=== PATIENT | male | born 1965 | race Caucasian/White ===

== ENCOUNTER 2021-05-17 11:47 | Inpatient (IN) | payer MEDICAID ==
[~2021-05-17] VITALS: Ht 320 cm; Wt 29.0 kg
[2021-05-17] MEDS ORDERED: SODIUM CHLORIDE 0.9% 1,000 ML IV ONE (13:45)
[2021-05-17 14:07] LABS: BASOPHILS % 0.6 % (0.0-2.0); EOSINOPHILS % 0.5 % (0.0-5.0); HEMATOCRIT. 40.1 % (42.0-52.0); HEMOGLOBIN. 13.6 g/dL (14.0-18.0); LYMPHOCYTES % 9.8 % (20.0-50.0); MEAN CORPUSCULAR HEMOGLOBIN 28.5 pg (28.0-32.0); MEAN CORPUSCULAR VOLUME 83.9 fL (80.0-94.0); MEAN PLATELET VOLUME 7.7 fl (7.4-10.4); MONOCYTES % 7.9 % (2.0-8.0); NEUTROPHILS % 81.2 % (40.0-76.0); PLATELET 393 x1000/uL (130-400); RED BLOOD CELL COUNT 4.78 mill/uL (4.7-6.1); RED CELL DISTRIBUTION WIDTH 14.6 % (11.6-14.6)
[2021-05-17 14:16] LABS: CHLORIDE 103 mEq/L (98-107)
[2021-05-17] MEDS ORDERED: CEFAZOLIN 1000MG PREMIX 50 ML IV ONE (14:45)
[2021-05-17] MEDS ORDERED: ACETAMINOPHEN 325MG TABLET PO PRN (19:15)
[2021-05-17] MEDS ORDERED: CLONIDINE 0.1MG TABLET PO PRN (19:15)
[2021-05-17] MEDS ORDERED: IPRATROPIUM/ALBUTEROL 0.5-3(2.5)MG/3ML NEB HHN PRN (19:15)
[2021-05-17] MEDS ORDERED: DIPHENHYDRAMINE 50MG/ML VIAL IV PRN (19:15)
[2021-05-17] MEDS ORDERED: ONDANSETRON HCL 4MG/2ML INJ IV PRN (19:15)
[2021-05-17] MEDS ORDERED: DEXTROSE 50% WATER 50ML SYRINGE IV PRN (20:15)
[2021-05-17] MEDS: CEFAZOLIN 1000MG PREMIX 50 ML IV SCH (20:17)
[2021-05-17] MEDS: BLOOD SUGAR DIAGNOSTIC STRIP TEST SCH (21:33)
[2021-05-17] MEDS: INSULIN LISPRO (LOW DOSE) 100 UNITS/ML SUBCUT SCH (21:37)
[2021-05-18] MEDS: CEFAZOLIN 1000MG PREMIX 50 ML IV SCH ×3 (04:23→23:55)
[2021-05-18 04:50] LABS: CHLORIDE 105 mEq/L (98-107)
[2021-05-18 04:57] LABS: BASOPHILS % 0.6 % (0.0-2.0); HEMATOCRIT. 34.9 % (42.0-52.0); HEMOGLOBIN. 12.1 g/dL (14.0-18.0); LYMPHOCYTES % 18.9 % (20.0-50.0); MEAN PLATELET VOLUME 7.6 fl (7.4-10.4); MONOCYTES % 7.1 % (2.0-8.0); NEUTROPHILS % 70.4 % (40.0-76.0); PLATELET 351 x1000/uL (130-400); RED BLOOD CELL COUNT 4.16 mill/uL (4.7-6.1); RED CELL DISTRIBUTION WIDTH 14.4 % (11.6-14.6)
[2021-05-18] MEDS: INSULIN LISPRO (LOW DOSE) 100 UNITS/ML SUBCUT SCH ×3 (08:20→18:30)
[2021-05-18] MEDS: BLOOD SUGAR DIAGNOSTIC STRIP TEST SCH ×4 (09:00→21:00)
[2021-05-18] MEDS ORDERED: NALOXONE HCL 0.4MG/ML VIAL IV PRN (13:30)
[2021-05-18] MEDS ORDERED: HYDROCODONE/ACETAMINOPHEN 5/325MG TABLET PO PRN (13:30)
[2021-05-19] MEDS: INSULIN LISPRO (LOW DOSE) 100 UNITS/ML SUBCUT SCH ×5 (01:49→21:00)
[2021-05-19] MEDS: BLOOD SUGAR DIAGNOSTIC STRIP TEST SCH ×5 (01:49→20:34)
[2021-05-19 04:10] LABS: BASOPHILS % 0.7 % (0.0-2.0); EOSINOPHILS % 4.1 % (0.0-5.0); HEMATOCRIT. 34.5 % (42.0-52.0); HEMOGLOBIN. 11.9 g/dL (14.0-18.0); LYMPHOCYTES % 18.4 % (20.0-50.0); MEAN CORPUSCULAR HEMOGLOBIN 28.8 pg (28.0-32.0); MEAN CORPUSCULAR VOLUME 83.9 fL (80.0-94.0); MEAN PLATELET VOLUME 7.3 fl (7.4-10.4); MONOCYTES % 7.4 % (2.0-8.0); NEUTROPHILS % 69.4 % (40.0-76.0); PLATELET 384 x1000/uL (130-400); RED BLOOD CELL COUNT 4.12 mill/uL (4.7-6.1); RED CELL DISTRIBUTION WIDTH 14.5 % (11.6-14.6)
[2021-05-19 04:16] LABS: CHLORIDE 105 mEq/L (98-107)
[2021-05-19] MEDS: CEFAZOLIN 1000MG PREMIX 50 ML IV SCH ×3 (08:45→20:35)
[2021-05-19] MEDS: AMLODIPINE 5MG TABLET PO SCH (15:35)
[2021-05-19] MEDS: METFORMIN HCL 500MG TABLET PO SCH (18:32)
[2021-05-19 20:00] VITALS: BP 146/90
[2021-05-19] MEDS ORDERED: AMOX-424 MT (20:20)
[2021-05-19] MEDS ORDERED: DOXY100T2 MT (20:20)
[2021-05-19 20:41] VITALS: BP 143/76
[2021-05-20] VITALS: BP 146/92
[2021-05-20 04:00] VITALS: BP 140/83
[2021-05-20] MEDS: CEFAZOLIN 1000MG PREMIX 50 ML IV SCH (04:16)
[2021-05-20] MEDS: BLOOD SUGAR DIAGNOSTIC STRIP TEST SCH (06:41)
[2021-05-20] MEDS: INSULIN LISPRO (LOW DOSE) 100 UNITS/ML SUBCUT SCH (06:41)
[2021-05-20 08:00] VITALS: BP 118/77
[2021-05-20] MEDS: AMLODIPINE 5MG TABLET PO SCH (09:08)
[2021-05-20] MEDS: METFORMIN HCL 500MG TABLET PO SCH (09:08)
[2021-05-20] MEDS ORDERED: METF-414 PO (10:53)
[2021-05-20] MEDS ORDERED: AMLO5TAB88 PO (10:53)
[2021-05-20 11:12] VITALS: BP 142/69
== END 2021-05-20 13:37 | disposition home or self-care (01) | DRG 48 ==
LOC: ER 12:00 → MICUSO 05-19 00:02 → 6EST 05-19 11:43
PROVIDERS: ADMIT Internal Medicine; ATTEND Internal Medicine
DX: E11.610 Type 2 diabetes mellitus with diabetic neuropathic arthropathy (principal); E11.621 Type 2 diabetes mellitus with foot ulcer; E11.40 Type 2 diabetes mellitus with diabetic neuropathy, unspecified; L03.116 Cellulitis of left lower limb; L97.519 Non-pressure chronic ulcer of other part of right foot with unspecified severity; D64.9 Anemia, unspecified; I10 Essential (primary) hypertension; L84 Corns and callosities; R59.0 Localized enlarged lymph nodes; Z89.421 Acquired absence of other right toe(s)
CPT/HCPCS: 36415; 73630; 80048; 80053; 80061; 82962; 83036; 83605; 84145; 84443; 84550; 85025; 85651; 86141; 93005; 93923; 93970; 97162; C1893; J0690; J1815; J7030

== ENCOUNTER 2022-10-26 18:22 | Emergency (ER) | payer MEDICAID ==
[~2022-10-26] VITALS: Ht 163.8 cm; Wt 67.7 kg
[~2022-10-26 18:22] MED LIST: AMLO5TAB88 PO; AMOX-424 MT; DOXY100T2 MT; METF-414 PO
[2022-10-26 18:54] LABS: BASOPHILS % 0.6 % (0.0-2.0); EOSINOPHILS % 0.1 % (0.0-5.0); HEMATOCRIT. 36.5 % (42.0-52.0); HEMOGLOBIN. 12.6 g/dL (14.0-18.0); LYMPHOCYTES % 11.2 % (20.0-50.0); MEAN CORPUSCULAR HEMOGLOBIN 28.9 pg (28.0-32.0); MEAN CORPUSCULAR VOLUME 83.4 fL (80.0-94.0); MEAN PLATELET VOLUME 6.6 fl (7.4-10.4); MONOCYTES % 3.5 % (2.0-8.0); NEUTROPHILS % 84.6 % (40.0-76.0); PLATELET 911 x1000/uL (130-400); RED BLOOD CELL COUNT 4.38 mill/uL (4.7-6.1); RED CELL DISTRIBUTION WIDTH 15.4 % (11.6-14.6)
[2022-10-26 19:27] LABS: CHLORIDE 98 mEq/L (98-107)
[2022-10-27] MEDS ORDERED: MORPHINE SULFATE 4 MG/ML CPJ (NOT FOR IM USE) IV ONE (01:15)
[2022-10-27] MEDS ORDERED: HYDRALAZINE 20MG/ML VIAL IV ONE (01:15)
[2022-10-27] MEDS ORDERED: SODIUM CHLORIDE 0.9% 1,000 ML IV ONE (02:00)
[2022-10-27] MEDS ORDERED: IOHEXOL-350 100 ML BOTTLE ONE (02:58)
[2022-10-27 05:34] VITALS: BP 155/88
== END 2022-10-27 05:34 | disposition home or self-care (01) ==
LOC: ER 18:22
DX: E11.65 Type 2 diabetes mellitus with hyperglycemia (principal); I10 Essential (primary) hypertension; Z98.890 Other specified postprocedural states
CPT/HCPCS: 36415; 71045; 71275; 74174; 80053; 83690; 84484; 85025; 93005; 96361; 96374; 96375; 99285; J0360; J2270; J7030; Q9967; Z7610